=== PATIENT | female | born 1975 | race Caucasian/White ===

== ENCOUNTER 2018-11-22 13:07 | Emergency (ER) | payer OTHER ==
[~2018-11-22] VITALS: Ht 167.6 cm; Wt 63.5 kg
[2018-11-22 13:49] VITALS: BP 133/112
== END 2018-11-22 14:37 | disposition home or self-care (01) ==
LOC: ER 13:07
DX: Z76.0 Encounter for issue of repeat prescription (principal); Z88.0 Allergy status to penicillin